=== PATIENT | female | born 1990 | race Hispanic/Latino ===

== ENCOUNTER 2016-11-18 22:39 | Emergency (ER) | payer OTHER ==
[2016-11-18] MEDS ORDERED: Sodium Chloride 0.9% 1,000 ML IV ONE (23:12)
--- NOTE | 2016-11-18 23:12 | C.PDOC ---
History Of Present Illness A 26 y/o female who is and 6 weeks , come in c/o vaginal bleeding that began today. Pt denies fever, chills, nausea, vomiting, dizziness, vaginal discharge, light headedness, dysuria, hematuria, or any other complaints. Time Seen by Provider: 11/18/16 23:12 Chief Complaint (Nursing): Female Genitourinary History Per: Patient History/Exam Limitations: no limitations Onset/Duration Of Symptoms: Hrs Current Symptoms Are (Timing): Still Present Severity: Mild Associated Symptoms: denies: Fever, Chills, Nausea, Vomiting Recent travel outside of the [place]: No Additional History Per: Patient Abnormal Vaginal Bleeding: Yes : 1 Para: 0 Past Medical History Reviewed: Historical Data, Nursing Documentation, Vital Signs Vital Signs: Last Vital Signs Temp 98 F 11/18/16 23:00 Pulse 81 11/18/16 23:00 Resp 20 11/18/16 23:00 BP 114/78 11/18/16 23:00 Pulse Ox 100 11/19/16 02:16 Family History: States: Unknown Family Hx - Social History Hx Alcohol Use: No Hx Substance Use: No - Immunization History Hx Tetanus Toxoid Vaccination: No (Not sure of last tetanus) Review Of Systems Constitutional: Negative for: Fever, Chills Cardiovascular: Negative for: Light Headedness Gastrointestinal: Negative for: Nausea, Vomiting Genitourinary: Positive for: Vaginal Bleeding. Negative for: Dysuria, Hematuria , Vaginal Discharge Neurological: Negative for: Dizziness Physical Exam - Physical Exam Appears: Non-toxic, No Acute Distress Skin: Warm, Dry Head: Normacephalic Eye(s): bilateral: Normal Inspection Neck: Trachea Midline, Supple Chest: Symmetrical Cardiovascular: Rhythm Regular Respiratory: No Rales, No Rhonchi, No Wheezing Gastrointestinal/Abdominal: Soft, Tenderness (Mild suprapubic tenderness), No Guarding, No Rebound Back: Normal Inspection Neurological/Psych: Oriented x3 (Awake and alert), Normal Speech, Normal Cognition Gait: Steady ED Course And Treatment - Laboratory Results Result Diagrams: 11/18/16 23:41 11/18/16 23:41 O2 Sat by Pulse Oximetry: 100 (RA) Pulse Ox Interpretation: Normal - CT Scan/US US , Transvaginal Other Rad Studies (CT/US): Interpreted By Me, Read By Radiologist CT/US Interpretation: EXAM: US , Transvaginal. CLINICAL HISTORY: 26 years old, female; Signs and symptoms; Lmp or gestational age (in weeks): ; Antepartum. complications; Bleeding; ; Additional info: Vag bleed, 6 weeks . TECHNIQUE: Real-time transvaginal obstetrical ultrasound of the maternal pelvis and a first trimester . with image documentation. Transvaginal imaging was used for better evaluation of the fetus and. adnexa. COMPARISON: No relevant prior studies available. FINDINGS: Gestation: Living intrauterine gestation size/ dates compatible at 6 weeks 0 days.. ESTEFANY is . Positive embryonic heart tones at 113 beats per minute Gestational sac is located in the uterine. fundus. Normal secondary yolk sac. Small subchorionic bleed. Placenta/amniotic fluid: See above. Uterus/cervix: Cervix is closed. No myometrial mass. Ovaries: Maternal ovaries identified with documented flow and follicles. Right ovary within 2.6 cm. corpus luteum cyst No mass. Free fluid: No free fluid. IMPRESSION: Living intrauterine gestation at 6 weeks 0 days. Small subchorionic bleed. Recommend short-term. followup Reevaluation Time: 02:16 Reassessment Condition: Improved Disposition Counseled Patient/Family Regarding: Studies Performed, Diagnosis, Need For Followup - Disposition Referrals: Lg Meek MD [Staff Provider] - Disposition: HOME/ ROUTINE Disposition Time: 23:12 Condition: FAIR Instructions: Threatened Miscarriage (ED), Subchorionic Hemorrhage (ED) - Clinical Impression Clinical Impression: Threatened , Subchorionic bleed - Scribe Statement The provider has reviewed the documentation as recorded by the [employer]rib[employer] stone All medical record entries made by the Scribe were at my direction and personally dictated by me. I have reviewed the chart and agree that the record accurately reflects my personal performance of the history, physical exam, medical decision making, and the department course for this patient. I have also personally directed, reviewed, and agree with the discharge instructions and disposition.
[2016-11-18] MEDS ORDERED: Sodium Chloride 0.9% 1,000 ML ONE (23:41)
[2016-11-18 23:46] LABS: BASO % 0.4 % (0.0-2.0); EOS # 0.1 K/uL (0.0-0.7); EOS % 0.7 % (0.0-4.0); HEMATOCRIT 37.8 % (34.0-47.0); LYMPH # 3.1 K/uL (1.0-4.3); LYMPH % 29.3 % (20.0-40.0); MEAN CELL VOLUME 86.5 fL (81.0-99.0); MEAN CORPUSCULAR HEMOGLOBIN 28.8 pg (27.0-31.0); MEAN CORPUSCULAR HGB CONC 33.3 g/dL (33.0-37.0); MEAN PLATELET VOLUME 10.4 fL (7.2-11.7); MONO # 0.7 K/uL (0.0-0.8); MONO % 6.8 % (0.0-10.0); RED CELL DISTRIBUTION WIDTH 13.5 % (11.5-14.5); WHITE BLOOD COUNT 10.7 K/uL (4.8-10.8)
[2016-11-18 23:53] LABS: CHLORIDE 100 mmol/L (98-107); SODIUM 135 mmol/L (132-148)
[2016-11-18 23:54] LABS: POTASSIUM 3.8 mmol/L (3.6-5.2)
[2016-11-18 23:56] LABS: ALB/GLOB RATIO 1.4 (1.0-2.1); ALKALINE PHOSPHATASE 61 U/L (38-126); ALT/SGPT 39 U/L (9-52); AST/SGOT 25 U/L (14-36); BILIRUBIN,TOTAL 0.5 mg/dL (0.2-1.3); BLOOD UREA NITROGEN 13 mg/dL (7-17); CARBON DIOXIDE 24 mmol/L (22-30); GFR AFRICAN-AMERICAN > 60; TOTAL PROTEIN 7.3 g/dL (6.3-8.3)
[2016-11-18 23:57] LABS: CALCIUM 8.6 mg/dl (8.6-10.4); GLUCOSE,RANDOM 73 mg/dL (65-105)
[2016-11-19 02:31] VITALS: BP 109/73; PULSE 85; RESP 18; TEMP 98.6; O2SAT 99
--- NOTE | 2016-11-19 08:47 | US ---
PROCEDURE: OB Pelvic Ultrasound HISTORY: vag bleed, 6 weeks COMPARISON: None available. FINDINGS: UTERUS: Single Live intrauterine gestation. CRL equivalent to 6 weeks 1 day gestatioin Gestational sac diameter equivalent to 5 weeks 6 days gestation age (Ultrasound estimated): 6 weeks 0 days Date of delivery (Ultrasound estimated) : 07/15/2017 Heart rate: 113 bpm. 3 mm yolk sac visualized. Deborah-gestational hemorrhage: Small Uterus measures 7.1 x 3.6 x 5.5 cm. No mass CERVIX: Long and closed. No cervical abnormality seen. RIGHT OVARY: Measures 3.7 x 2.2 x 3.3 cm. Corpus luteum noted, 2.3 x 1.8 x 2.6 cm. No other mass. . Normal flow. LEFT OVARY: Measures 2.5 x 1.4 x 1.7 cm. No mass. Normal flow. FREE FLUID: None. OTHER FINDINGS: None. IMPRESSION: Single live intrauterine gestation of approximately 6 weeks 0 days gestational age. Small subchorionic hemorrhage noted. Right ovarian corpus luteum. heart rate 113. ESTEFANY 07/15/2017. Preliminary interpretation of this examination was reported by [facility] at 2:15 a.m. on 11/19/2016. There is concurrence of this report with the preliminary interpretation.
== END 2016-11-19 02:33 | disposition home or self-care (01) ==
LOC: C.ER 22:39
DX: O20.0 Threatened abortion (principal); Z3A.01 Less than 8 weeks gestation of pregnancy
CPT/HCPCS: 76817; 80053; 84702; 85025; 85610; 85730; 86850; 86900; 96360; 99284; J7040